=== PATIENT | female | born 1960 | race Two or more races ===

== ENCOUNTER 2018-04-25 21:39 | Emergency (ER) | payer SELFPAY ==
[~2018-04-25] VITALS: Ht 154.9 cm; Wt 59.0 kg
[2018-04-25] MEDS ORDERED: ACETAMINOPHEN 500 MG TAB PO ONE (22:45)
[2018-04-25 23:16] LABS: Basophils # (auto) 0.1 uL; Basophils % (auto) 0.6 % (0.0-2.0); Eosinophils # (auto) 0 uL; Eosinophils % (auto) 0.3 % (0.0-7.0); Hematocrit 42.1 % (36.0-46.0); Hemoglobin 14.2 g/dL (12.2-16.2); Lymphocytes # (auto) 0.6 uL; Lymphocytes % (auto) 5.2 % (10.0-50.0); Mean Corpuscular Hemoglobin 31.7 pg (28.0-32.0); Mean Corpuscular Hgb Conc. 33.8 g/dL (32.0-36.0); Mean Corpuscular Volume 93.7 fL (80.0-100.0); Monocytes # (auto) 1.1 uL; Monocytes % (auto) 8.8 % (0.0-12.0); Neutrophils # (auto) 10.3 uL; Neutrophils % (auto) 85.1 % (37.0-80.0); Nucleated Red Blood Cells % 0.1 %; Platelet Count (auto) 307 10^3/uL (140-450); Red Blood Cells 4.49 10^6/uL (4.0-5.20); Red Cell Distribution Width 13.1 % (11.8-14.3); White Blood Cell 12.1 10^3/uL (4.4-10.8)
[2018-04-25 23:34] LABS: BUN/Creatinine Ratio 18.8; Calcium 8.9 mg/dL (8.5-10.1); Potassium 4.1 mmol/L (3.5-5.1)
[2018-04-25 23:37] LABS: Bilirubin, Total 0.7 mg/dL (0.2-1.0); Total Protein 7.9 g/dL (6.4-8.2)
[2018-04-26 01:56] LABS: Urine Bacteria FEW /hpf (None Seen); Urine Blood TRACE /uL (Negative); Urine Mucus FEW (None Seen); Urine Specific Gravity 1.022 (1.001-1.035); Urine WBC 9 /hpf (0 - 5)
[2018-04-26] MEDS ORDERED: cefTRIAXone SOD 1,000 MG VL IM ONE (03:30)
[2018-04-26] MEDS ORDERED: KETOROLAC TROMETH 60MG/2ML VIAL IM ONE (03:30)
[2018-04-26] MEDS ORDERED: ONDANSETRON ODT 4 MG TAB PO ONE (03:30)
[2018-04-26 03:42] VITALS: BP 112/65
[2018-04-26] MEDS ORDERED: LIDOCAINE 2% (LOCAL ANESTH.) PF 5ml SDV ONE (03:52)
== END 2018-04-26 04:37 | disposition home or self-care (01) ==
LOC: ER 21:39
DX: N39.0 Urinary tract infection, site not specified (principal)
CPT/HCPCS: 36415; 80053; 81001; 84484; 85025; 96372; 99283; J0696; J1885; J2001; Q0162